=== PATIENT | male | born 1985 | race African-American/Black ===

== ENCOUNTER 2020-04-08 16:52 | Inpatient (IN) | payer BC ==
[~2020-04-08] VITALS: Ht 177.8 cm; Wt 97.5 kg
[~2020-04-08 16:52] MED LIST: NORCO 5-325 TA1 EACH PO
[2020-04-08 18:49] LABS: ABSOLUTE NEUTROPHILS 3.7 thou/uL (1.4-8.2); BASOPHILS 0.9 % (0.0-2.0); EOSINOPHILS 3.5 % (0.0-3.0); HEMATOCRIT 46.3 % (42.0-52.0); HEMOGLOBIN 14.4 gm/dL (14.0-18.0); LYMPHOCYTES 50.4 % (24.0-44.0); MCH 23.2 pg (26.0-34.0); MCHC 31.2 g/dL (28.0-37.0); MCV 74.3 fL (80.0-100.0); MONOCYTES 10.1 % (1.0-8.0); PLATELET COUNT 344 thou/uL (150-400); POLYS 35.1 % (36.0-66.0); RBC 6.23 mil/uL (4.50-6.00); RDW 15.9 % (10.5-14.5); WBC 10.6 thou/uL (4.0-11.0)
[2020-04-08 18:53] LABS: CREATININE 1.3 mg/dL (0.7-1.3); POTASSIUM 3.1 mmol/L (3.5-5.1)
[2020-04-08 18:59] LABS: ALBUMIN 4.2 g/dL (3.4-5.0); TOTAL BILIRUBIN 0.6 mg/dL (0.2-1.0); TOTAL PROTEIN 8.5 g/dL (6.4-8.2)
[2020-04-08 19:34] VITALS: BP 139/78
[2020-04-08 19:45] VITALS: BP 139/78
[2020-04-08 21:00] VITALS: BP 162/84
--- NOTE | 2020-04-08 23:31 | HC ---
[facility] [place] [address] CONSULTATION Name: BEVERLY SAUNDERS Room #: 439-P ADM IN M.R.#: [id number] Admission: 04/08/20 Attend Phys: Adriano Stone, Discharge: Date of : 83 Report #: [id number] THIS REPORT FOR: cc: [facility] - No family physician/PCP [facility] - No family physician/PCP Willi Ward MD ~ CC: [facility] physician/PCP Adriano Vee DATE OF SERVICE: 04/08/2020 CHIEF COMPLAINT: Bilateral calcaneus fractures. HISTORY OF PRESENT ILLNESS: This is a 34-year-old gentleman who presented to the ER after falling approximately 8 feet from a retaining wall injuring his feet and landing on both of them while wearing flip flops. He was unable to walk and so was carried to a car and brought to the Emergency Room. PAST MEDICAL HISTORY: Negative. PAST SURGICAL HISTORY: Negative. ALLERGIES: None. SOCIAL HISTORY: Negative for alcohol use. Positive for recreational marijuana use. REVIEW OF SYSTEMS: As above. PHYSICAL EXAMINATION: VITAL SIGNS: Notes a blood pressure of 181/89, pulse ox is 98, pulse is 101, respiratory rate is 19. HEAD: Normocephalic, atraumatic. LUNGS: Clear to auscultation. HEART: Regular rate and rhythm. EXTREMITIES: Examination of bilateral feet notes significant edema to the feet with good capillary refill distally. He is neurovascularly intact distally. Limited range of motion through the ankle and foot due to pain. X-rays note on the left side, a displaced intra-articular calcaneal fracture, on the right side, a widely displaced posterior tuberosity with a calcaneus fracture, which is tenting the skin. This extends into the subtalar joint as well. He did have CT scans as well, which detailed the same. IMPRESSION: Bilateral calcaneus fractures with an urgent posterior tuberosity [facility] [address] [place] [address] CONSULTATION Name: BEVERLY SAUNDERS Room #: 439-P [facility] IN [facility].#: [id number] Admission: 04/08/20 Attend Phys: Adriano Stone, Discharge: Date of : 83 Report #: [id number] of the calcaneus fracture on the right. PLAN: Options were discussed at length with the patient. He will require at some point in the future bilateral calcaneus open reduction and internal fixation. Urgently tonight he will require a closed reduction and pinning of the right calcaneus to avoid any skin necrosis. Again, we are proceeding urgently with the management of this right calcaneus fracture. <ELECTRONICALLY SIGNED> By: Willi Ward MD 04/08/20 2331 [id number] Willi Ward MD /nt
[2020-04-09 03:30] VITALS: BP 122/78
[2020-04-09 06:07] LABS: CALCIUM 8.5 mg/dL (8.5-10.1); CREATININE 1.2 mg/dL (0.7-1.3)
[2020-04-09 06:18] LABS: POTASSIUM 4.2 mmol/L (3.5-5.1)
[2020-04-09 06:24] LABS: INR 1.1; PROTIME 10.8 Seconds (9.3-11.4)
--- NOTE | 2020-04-09 10:42 | O ---
[facility] [place] [address] OPERATIVE REPORT Name: BEVERLY SAUNDERS Room #: 439-P ADM IN M.R.#: [id number] Admission: 04/08/20 Attend Phys: Adriano Stone, Discharge: Date of : 83 Report #: [id number] THIS REPORT FOR: cc: [facility] - No family physician/PCP [facility] - [facility] family physician/PCP Willi Ward MD ~ CC: [facility] physician/PCP Adriano Vee DATE OF SERVICE: 04/08/2020 PREOPERATIVE DIAGNOSIS: Right calcaneus tongue-type fracture, displaced. POSTOPERATIVE DIAGNOSIS: Right calcaneus tongue-type fracture, displaced. PROCEDURE: Right calcaneus closed reduction and percutaneous screw fixation. SURGEON: Willi Ward MD. ANESTHESIA: General. ESTIMATED BLOOD LOSS: 5 mL. DRAINS: No drains. TOURNIQUET TIME: 45 minutes. DESCRIPTION OF PROCEDURE: The patient brought to the operating room where he was placed under general anesthesia. Once under adequate general anesthesia, his right lower extremity was prepped and draped in a sterile manner. The extremity was elevated and tourniquet placed to 300 mmHg. Utilizing fluoroscopy for guidance, a large bone reduction tenaculum was placed through a stab incision in the skin spreading down to the calcaneal tuberosity. A large bone reduction tenaculum was then placed across the fracture, less than satisfactory reduction was able to be achieved in this manner. Therefore, a separate incision over the fracture site approximately 5 mm in length was made with use of a joker elevator. The subtalar portion of the fracture was then elevated and the large tuberosity tongue fragment was then reduced with a bone reduction tenaculum. Satisfactory reduction was achieved in this manner. Once the fracture was reduced, two 4.5 mm cannulated screws were placed across the fracture site. Excellent fixation was achieved in this manner with excellent stability. Once complete, the wounds were irrigated copiously and closed with kim for the skin. The wounds were dressed with Xeroform, 4 x 4s, and sterile soft compressive dressing with a short leg splint was placed. The patient's left lower extremity also had a calcaneus fracture and this was placed [address] [address] OPERATIVE REPORT Name: BEVERLY SAUNDERS Room #: 439-P [facility] IN M.R.#: [id number] Admission: 04/08/20 Attend Phys: Adriano Stone, Discharge: Date of : 83 Report #: [id number] in a short leg splint as well. The tourniquet was let down approximately 45 minutes. Toes were pink and warm with good capillary refill. There were no complications from the procedure. The patient tolerated the procedure well and went to the recovery room without incident. <ELECTRONICALLY SIGNED> By: Willi Ward MD 04/09/20 1042 [id number] Willi Ward MD /gladis
[2020-04-09 10:52] VITALS: BP 151/79
[2020-04-09 16:30] VITALS: BP 151/79
[2020-04-09 17:54] VITALS: BP 140/67
[2020-04-09 22:34] VITALS: BP 133/85
[2020-04-10 04:30] VITALS: BP 132/77
[2020-04-10 05:38] LABS: HEMATOCRIT 39.7 % (42.0-52.0); HEMOGLOBIN 12.6 gm/dL (14.0-18.0); MCH 23.2 pg (26.0-34.0); MCHC 31.7 g/dL (28.0-37.0); RBC 5.43 mil/uL (4.50-6.00); RDW 15.5 % (10.5-14.5); WBC 12.7 thou/uL (4.0-11.0)
[2020-04-10 06:15] LABS: ALBUMIN 3.6 g/dL (3.4-5.0); CALCIUM 8.1 mg/dL (8.5-10.1); CREATININE 1.1 mg/dL (0.7-1.3); PHOSPHORUS 2.2 mg/dL (2.5-4.9); POTASSIUM 3.4 mmol/L (3.5-5.1)
[2020-04-10 08:30] VITALS: BP 143/70
[2020-04-10 16:48] VITALS: BP 135/83
[2020-04-10 20:20] VITALS: BP 137/72
[2020-04-11 03:40] VITALS: BP 125/70
[2020-04-11 08:15] VITALS: BP 134/93
[2020-04-11] MEDS ORDERED: PERCOCET 10-321 EACH PO (13:25)
[2020-04-11 13:36] VITALS: BP 151/79
--- NOTE | 2020-04-12 09:14 | H ---
[facility] [place] [address] [address] HISTORY AND PHYSICAL Name: BEVERLY SAUNDERS Room #: 439-P DIS IN M.R.#: [id number] Admission: 04/08/20 Attend Phys: Adriano Stone, Discharge: 04/11/20 Date of : 83 Report #: [id number] THIS REPORT FOR: cc: [facility] - No family physician/PCP [facility] - No family physician/PCP Chandu Shine MD ~ CC: [facility] physician/PCP Adriano Melendez Abraham DATE OF SERVICE: 04/08/2020 ATTENDING PHYSICIAN: Dr. Shine. CHIEF COMPLAINT: Fall from 10 feet. HISTORY OF PRESENT ILLNESS: The patient is a very pleasant 34-year-old gentleman who was walking along a sergio on the yard when he fell with sandals on and fractured bilateral calcanei. The patient is complaining of pain in his bilateral feet, left greater than right. No pain anywhere else. Denies hitting his head or loss of consciousness. PAST MEDICAL HISTORY: Denies. PAST SURGICAL HISTORY: Denies. SOCIAL HISTORY: Denies use of tobacco. He does smoke marijuana. He endorses social alcohol use. He is employed with [employer]. FAMILY HISTORY: Brother has schizophrenia and blood clots, denies malignancy. REVIEW OF SYSTEMS: CONSTITUTIONAL: No fever. No chills. HEENT: Denies blurring of vision, double vision, headaches, hearing loss, sinus drainage or sore throat. Denies blurring of vision, double vision, headaches, hearing loss, sinus drainage or sore throat. CARDIOVASCULAR: Denies chest pain, palpitations, orthopnea or paroxysmal nocturnal dyspnea. RESPIRATORY: Denies cough, wheezing, hemoptysis, or shortness of air. GASTROINTESTINAL: No nausea. No vomiting. No diarrhea. No Heartburn. No nausea. No vomiting. No diarrhea. No Heartburn. GENITOURINARY: Denies dysuria or hematuria or kidney stones. No urinary frequency, urgency or incontinence. Denies dysuria or hematuria or kidney stones. No urinary frequency, urgency or incontinence. MUSCULOSKELETAL: See above and below. NEUROLOGICAL: Denies tremor, stroke or seizure. Denies tremor, stroke or [facility] [address] [place] [address] HISTORY AND PHYSICAL Name: BEVERLY SAUNDERS Room #: 439-P [facility] IN [facility].#: [id number] Admission: 04/08/20 Attend Phys: Adriano Stone, Discharge: 04/11/20 Date of : 83 Report #: [id number] seizure. HEMATOLOGIC/LYMPHATICS: Denies easy bruising, easy bleeding or enlarged lymph nodes. SKIN: No rash or ulceration. ENDOCRINE: No heat or cold intolerance PSYCHIATRIC: Denies depression, anxiety, or schizophrenia. PHYSICAL EXAMINATION: VITAL SIGNS: Temperature 36.6, pulse 77, respiratory rate 16, pressure 151/79, pulse ox 100%. GENERAL: No apparent distress, alert and oriented x3. HEENT: PERRLA, EOMI, MMM, NCAT NECK: Supple. No LAD CARDIOVASCULAR: Regular rhythm and rate. Hemodynamically stable. Normal capillary refill. Regular rhythm and rate. Hemodynamically stable. Normal capillary refill. PULMONARY: Nonlabored. Clear to auscultation bilaterally ABDOMEN: Soft, nontender to palpation, no guarding, no rigidity, no rebound tenderness, no hernias. EXTREMITIES: Calves soft, nontender, no edema. SKIN: No rashes or bruises. PSYCHIATRIC: Normal mood and affect Normal mood and affect NEUROLOGICAL: Grossly intact. CN II-XII grossly intact. LYMPHATICS: No cervical, inguinal, or supraclavicular lymphadenopathy. MUSCULOSKELETAL: Bilateral feet and ankles in splints. He is able to wiggle his left toes and is able to feel light touch on the left toes. He did receive a nerve block and is unable to wiggle his right toes or feel light touch at this time. His toes on both feet are nice and warm to touch. C-spine, T-spine and L-spine are nontender. No signs of trauma. GCS is 15. LABORATORY DATA: White blood count 10.6, hemoglobin 14.4, hematocrit 46.3, platelets 343. Sodium 136, potassium 4.2, creatinine 1.2. INR 1.1. IMAGING: Bilateral ankles. Impression: 1. Compression fracture of the left calcaneus, which appears comminuted on the lateral projection without significant displacement. 2. Prominent compression deformity of the right calcaneus separation of approximately 1.3 cm. Slight displacement of the cortex of the AP projection laterally by 8 mm. No additional fractures are seen. [address] [address] HISTORY AND PHYSICAL Name: BEVERLY SAUNDERS Room #: 439-P [facility] IN M.R.#: [id number] Admission: 04/08/20 Attend Phys: Adriano Stone, Discharge: 04/11/20 Date of : 83 Report #: [id number] Bilateral foot x-ray: Impression: 1. Comminuted compression fractures of both calcanei, more prominent on the right than on the left with slight separation of the posterior right calcaneus by 1.3 cm. No additional fractures are seen. A chest x-ray: Impression: Normal single view x-ray. CT cervical spine: Impression: Nonspecific straightening of the cervical spine. No other acute abnormalities are identified. CT chest, abdomen and pelvis. Impression: 1. No acute abnormalities are identified in the chest, abdomen or pelvis. 2. Small retroperitoneal, abdominal, and upper pelvic mesenteric lymph nodes of uncertain significance. CT head: Impression: Normal noncontrast CT scan of the head. CT lumbar spine: Impression: Normal alignment of the lumbar spine. There are no findings or fractures or subluxation. Disk bulging is noted at the L5-S1 level causing mild foraminal tapering without significant overall impingement on the canal. Protrusion is also present at L4-L5 without significant impingement on the canal. Mild foraminal tightening is present. CT thoracic spine: Impression: No acute abnormalities are identified in the thoracic spine. CT lower extremity: Impression: 1. Mild motion degraded study. Artifactual step-offs just in the left tibia and fibula on the reconstructed imaging is felt to be related to artifact as no fracture seen in this area noted, on plain films. Clinical correlation is recommended. 2. Comminuted compression fracture of the left calcaneus as noted above, which is less prominent on the right calcaneus. There are multiple fragments as noted above with a vertical extension of the fracture line into the subtalar joint area, although there is prominent compression fracture, significant displacement of fracture fragments is not evident. 3. Comminuted compression fracture of the right calcaneus. More prominent displacement of the right calcaneus is demonstrated with separation of the posterior fragment of 7 mm centrally and 16 mm posteriorly along the medial [facility] [address] [place] [address] HISTORY AND PHYSICAL Name: BEVERLY SAUNDERS Room #: 439-P DIS IN M.R.#: [id number] Admission: 04/08/20 Attend Phys: Adriano Stone, Discharge: 04/11/20 Date of : 83 Report #: [id number] border, series 9 image. Multiple compression fracture fragments are demonstrated as noted in the proper report. 4. No additional fractures are seen within the rest of the metatarsals or visualized metatarsals. ASSESSMENT AND PLAN: The patient is a very pleasant 34-year-old gentleman status post fall from 10 feet. DIAGNOSES: 1. Fall from 10 feet. 2. Bilateral calcaneal fractures. PLAN: 1. Admit to trauma. 2. Consult orthopedic surgery. Appreciate recommendations. He is already status post closed reduction and percutaneous screw fixation of the right calcaneus. Further recommendations of the left calcaneus pending. 3. Consult medicine. Appreciate recommendations. 4. Analgesics and antiemetics. 5. Start DVT prophylaxis when okay with Orthopedic Surgery. The patient's brother does have a history of a blood clot. 6. PT, OT and case management consult. <ELECTRONICALLY SIGNED> By: Chandu Shine MD 04/12/20 0914 1101 [id number] Chandu Shine MD /nt
== END 2020-04-11 16:36 | disposition home or self-care (01) | DRG 504 ==
LOC: ER 16:52 → 4S 18:48 → EROBS 18:48 → 4S 20:25
PROVIDERS: Emergency Medicine; Nurse Practitioner Family; Surgery; ADMIT Surgery; ATTEND Surgery
PROC: 3E0T3BZ Introduction of Anesthetic Agent into Peripheral Nerves and Plexi, Percutaneous Approach (ICD-10-PCS; principal; 2020-04-08)
PROC: 2W3TX1Z Immobilization of Left Foot using Splint (ICD-10-PCS; principal; 2020-04-08)
PROC: 0QSL34Z Reposition Right Tarsal with Internal Fixation Device, Percutaneous Approach (ICD-10-PCS; principal; 2020-04-08)
DX: S92.062A Displaced intraarticular fracture of left calcaneus, initial encounter for closed fracture (principal); D62 Acute posthemorrhagic anemia; S92.041A Displaced other fracture of tuberosity of right calcaneus, initial encounter for closed fracture; F12.90 Cannabis use, unspecified, uncomplicated; W15.XXXA Fall from cliff, initial encounter; Y93.89 Activity, other specified; Y92.89 Other specified places as the place of occurrence of the external cause; Y99.8 Other external cause status; Z03.818 Encounter for observation for suspected exposure to other biological agents ruled out
CPT/HCPCS: 10195; 50101; 50386; 50679; 51332; 51412; 56524; 57091; 57180; 62110; 62900

== ENCOUNTER 2020-04-13 10:34 | Inpatient (IN) | payer BC ==
[~2020-04-13] VITALS: Ht 175.3 cm; Wt 97.5 kg
--- NOTE | ~2020-04-13 | O ---
[facility] [place] [address] OPERATIVE REPORT Name: BEVERLY SAUNDERS Room #: [facility].#: [id number] Admission: 04/13/20 Attend Phys: Willi Ward MD Discharge: Date of : 83 Report #: [id number] THIS REPORT FOR: cc: [facility] - [facility] family physician/PCP [facility] - [facility] family physician/PCP Willi Ward MD ~ CC: [facility] physician/PCP Willi Ward DATE OF SERVICE: 04/13/2020 PREOPERATIVE DIAGNOSIS: Bilateral calcaneal fractures. POSTOPERATIVE DIAGNOSIS: Bilateral calcaneal fractures. PROCEDURE: Open reduction and internal fixation, bilateral calcaneus fractures. SURGEON: Dr. Willi Ward. PROCESS EXCELLENCE MANAGER: Lianna Fletcher, critical for management of patient for positioning and retraction for fixation. ANESTHESIA: General. ESTIMATED BLOOD LOSS: Minimal. DRAINS: No drains. TOURNIQUET TIME: Tourniquet time on the right was 30 minutes. Tourniquet time on the left was 45 minutes. DESCRIPTION OF PROCEDURE: The patient brought to the operating room where he was placed under general anesthesia. Once under adequate general anesthesia, bilateral lower extremities were prepped and draped in a sterile manner. A subtalar incision approximately 3 cm in length was made in the sinus tarsi. This was dissected down through the soft tissue to the fracture site. This is on the right lower extremity. The patient's right lower extremity was elevated, exsanguinated, tourniquet placed 300 mmHg. A 2 cm incision over the sinus tarsi was made. This was dissected down through the soft tissue to the subtalar joint. The fracture was then identified and the fracture was freed and rotated from plantar to dorsal and then subsequently reduced with a joker elevator and provisionally fixed with 2 wires for the 4.0 cannulated screws. A lamina awning craftsman was placed in the sinus tarsi to assist with reduction and fixation was then achieved across the posterior facet with two 4.0 cannulated screws placed under fluoroscopic guidance. A 4.5 mm screw was placed lengthwise from anterolateral to posteromedial across the calcaneus from the anterior calcaneal [address] [address] OPERATIVE REPORT Name: BEVERLY SAUNDERS Room #: [facility] M.R.#: [id number] Admission: 04/13/20 Attend Phys: Willi Ward MD Discharge: Date of : 83 Report #: [id number] fragment. This was a fully threaded 4.5 mm cannulated screw to assist in fixing the anterior calcaneus to the posterior calcaneus. Excellent fixation and alignment was achieved as verified under fluoroscopy. The wounds were then irrigated copiously and closed with 2-0 Vicryl in the deep and subcutaneous tissues and kim were used for the skin. Wound was dressed with Xeroform, 4 x 4s, and a sterile soft compressive dressing with a short leg cast was placed later. Tourniquet on this side was let down at 30 minutes. We then proceeded to the left side, which was then elevated, exsanguinated and a tourniquet placed to 300 mmHg. A longitudinal incision 4 cm in length was made overlying the sinus tarsi extending distally along the calcaneus. This was dissected down through the soft tissue to the lateral aspect of the joint and exposure of the joint was then achieved. Any hematoma was evacuated and the fracture was identified. A joker elevator was used to elevate the posterior facet fracture fragment and then subsequently fixed it into place provisionally with a K-wire and final fixation with a lateral calcaneal plate along the sinus tarsi from the [employer] set. Two screws were placed proximal and 3 distal to the fracture for fixation connecting the anterior to posterior part of the calcaneus. Excellent fixation and alignment of the posterior facet was achieved in this manner. The wound was then irrigated copiously and closed with 0 Vicryl in the deep fascia, 2-0 Vicryl in subcutaneous tissues and kim were used for the skin. The wounds were dressed with Xeroform, 4 x 4s, and a sterile soft compressive dressing with a short leg cast was placed. Short leg cast was placed on the right lower extremity as well. Tourniquet was then let down at 45 minutes. Toes were pink and warm with good capillary refill bilaterally. There were no complications from the procedure. The patient tolerated the procedure well and went to the recovery room without incident. By: [id number] Willi Ward MD /nt
[~2020-04-13 10:34] MED LIST changes: +PERCOCET 10-321 EACH PO
[2020-04-13 12:56] VITALS: BP 138/55
--- NOTE | 2020-04-13 18:20 | NUR ---
PT IS AOX4, VSS, DENIES PAIN/NAUSEA AT THIS TIME. PT REPORTS ANES. BLOCK IS WORKING WELL. BLE PROMPTED UP ON PILLOWS, PT UNABLE TO WIGGLE TOES D/T ANES. BLOCK. PT REFUSED ZOFRAN AND PROMETHAZINE IV MEDS. PT TOLERATING CLEAR LIQUID DIET, NEW IV PLACED ON R FOREARM. CALL LIGHT IN REACH, WILL CONTINUE TO MONITOR.
--- NOTE | 2020-04-14 03:06 | NUR ---
ASSUMED PT CARE AT APPROX 1900.PT C/O PAIN ON HIS BLE,MANAGED WITH MED.DRSG TO BLE C/D/I.FEET ELEVATED WITH PILLOWS AND WEDGES PER PT'S REQUEST.PT RESTING ON HIS BED AT THIS TIME.FALL PRECAUTIONS MAINTAINED.CALL LIGHT WITHIN REACH.
[2020-04-14 04:40] VITALS: BP 134/95
[2020-04-14 07:10] VITALS: BP 139/80
--- NOTE | 2020-04-14 09:11 | NUR ---
POST-OP ORDERS RECEIVED. Pt IS FAMILIAR TO THIS THERAPIST AND WAS EVALUATED FOR TRANSFERS LAST WEEK AFTER ORIF OF RT CALCANEUS. Pt WAS SAFE WITH TRANSFERS NWB BILATERAL LOWER EXTREMITIES LAST WEEK AND WAS DISCHARGED HOME. SPOKE WITH Pt WHO STATES HE HAD NO ISSUES AT HOME AND DID NOT FEEL HE WOULD NEED ANOTHER FORMAL P.T. EVAL FOR TRANSFER TRAINING. Pt DECLINING P.T. EVAL BUT IS SAFE FOR HOME WITH WHEELCHAIR AND PERFORMING TRANSFERS NWB BILATERAL LOWER EXTREMITIES
--- NOTE | 2020-04-14 11:36 | NUR ---
Pt has been seen by PT and cleared for dc home. He has a w/c from his dc home last week and has supportive family. No cm interventions indicated. Case not opened. Dc today.
[2020-04-14 14:45] VITALS: BP 144/79
--- NOTE | 2020-04-14 19:30 | NUR ---
PT ALERT AND ORIENTED TIMES FOUR. VSS, IVF INFUSING PER ORDER. BLE CAST IN PLACE. PT C/O PAIN MEDS GIVEN WITH SOME RELEIF. PT TOLERATES DIET. PT AT BEDSIDE FOR MOST OF THE SHIFT. PT LOOKING FORWARD TO DISCHARGE TOMORROW.
[2020-04-14 21:45] VITALS: BP 140/86
--- NOTE | 2020-04-15 00:13 | NUR ---
ASSUMED PT CARE AT 1900. PT IS A&OX4. PAIN BEING MANAGED WITH PO PAIN MEDS. VSS. FLUIDS INFUSING PER ORDER. RESTING IN BED WITH LEGS ELEVATED. ANCIPATING DISCHARGE TOMORROW.
[2020-04-15 07:28] VITALS: BP 134/70
--- NOTE | 2020-04-15 11:55 | NUR ---
PT AT BEDREST, UPON ASSESSMENT WITH VSS, C/O CONSTIPATION, PHYSICIAN NOTIFIED, STATES NO APPETITE, MORNING MEDS ADMINISTERED, REFUSES PAIN MEDS. PT CALM AND PLEASENT FALL PRECAUTIONS IN PLACE AND WILL CONTINUE TO MONITOR.
[2020-04-15 16:35] VITALS: BP 134/70
== END 2020-04-15 17:35 | disposition home or self-care (01) | DRG 505 ==
LOC: OR 10:34 → 4S 14:08 → OR 15:14 → 4E 16:09 → OR 16:09 → 4E 16:21 → 4S 16:21
PROVIDERS: ADMIT Orthopaedic Surgery Foot and Ankle Surgery; ATTEND Orthopaedic Surgery Foot and Ankle Surgery
PROC: 0QSM04Z Reposition Left Tarsal with Internal Fixation Device, Open Approach (ICD-10-PCS; principal; 2020-04-13)
PROC: 0QSL04Z Reposition Right Tarsal with Internal Fixation Device, Open Approach (ICD-10-PCS; principal; 2020-04-13)
DX: S92.001A Unspecified fracture of right calcaneus, initial encounter for closed fracture (principal); S92.002A Unspecified fracture of left calcaneus, initial encounter for closed fracture; W18.39XA Other fall on same level, initial encounter; Y93.89 Activity, other specified; Y92.89 Other specified places as the place of occurrence of the external cause; Y99.8 Other external cause status
CPT/HCPCS: 10102; 50010; 50101; 50386; 50679; 51122; 51277; 51412; 52120; 56524; 57092; 57180; 58188; 58189; 58190; 62110; 62900; 64039; 70005